=== PATIENT | female | born 1970 | race Caucasian/White ===

== ENCOUNTER 2017-04-08 21:08 | Emergency (ER) | payer OTHER ==
[2017-04-08 22:06] LABS: BASO % 0.1 % (0.1-1.2); EOS % 0.3 % (0.7-5.8); GRAN # 7.5 10_X3_uL (1.6-6.1); HEMATOCRIT 37.2 % (34-45); LYMPH # 0.3 10_X3_uL (1.2-3.7); LYMPH % 4.2 % (19.3-51.7); MEAN CORPUSCULAR HEMOGLOBIN 31.4 pg (27.0-33.0); MEAN CORPUSCULAR HGB CONC 34.9 g/dL (32.0-36.0); MEAN CORPUSCULAR VOLUME 89.9 fL (79-95); MONO % 0.4 % (4.7-12.5); PLATELET COUNT 231 x10_3/uL (182-369); RED BLOOD COUNT 4.14 x10_6/uL (3.9-5.2); RED CELL DISTRIBUTION WIDTH 14.7 % (11.7-14.4); WHITE BLOOD COUNT 7.9 x10_3/uL (4.0-10.0)
[2017-04-08 22:22] LABS: ALBUMIN 3.4 gm/dL (3.4-5.0); ALKALINE PHOSPHATASE 260 U/L (50-136); ALT/SGPT 64 U/L (3.5-33.9); AST/SGOT 139 U/L (7.04-26.96); BLOOD UREA NITROGEN 14 mg/dL (7-18); CALCIUM 8.3 mg/dL (8.7-10.7); CARBON DIOXIDE 23 mmol/L (21-32); CREATININE 0.9 mg/dL (0.6-1.3); GLUCOSE,RANDOM 122 mg/dL (70-99); SODIUM 140 mmol/L (136-145)
[2017-04-08 22:30] LABS: POTASSIUM 2.9 mmol/L (3.5-5.1)
== END 2017-04-09 02:57 | disposition home or self-care (01) ==
LOC: ER 21:08
PROVIDERS: Emergency Medicine
DX: F11.23 Opioid dependence with withdrawal (principal); E87.6 Hypokalemia; F17.210 Nicotine dependence, cigarettes, uncomplicated; Z90.710 Acquired absence of both cervix and uterus; Z88.8 Allergy status to other drugs, medicaments and biological substances; Z79.899 Other long term (current) drug therapy
CPT/HCPCS: 36415; 80053; 85025; 96374; 96375; 96376; 99070; 99283-25; 99284